=== PATIENT | male | born 1950 | race Asian ===

== ENCOUNTER 2016-10-20 18:28 | Inpatient (IN) | payer MEDICAID ==
[~2016-10-20] VITALS: Ht 172.7 cm; Wt 71.3 kg
--- NOTE | 2016-10-20 18:30 | NUR ---
BIB RA FOR CHOCKING ON UNKNOWN OBJECT, PATIENT DOES NOT HAVE ANY RESPIRATORY DISTRESS UPON ARRIVAL, PATIENT IS CONFUSED, ABLE TO AMBULATE WITH ASSISTANCE, PLACED ON MONITOR, MD AT BEDSIDE, WILL CONTINUE TO MONITOR.
--- NOTE | 2016-10-20 19:05 | NUR ---
RECEIVED REPORT FROM KAPIL APARICIO FOR CONTINUE OF CARE.
--- NOTE | 2016-10-20 19:10 | NUR ---
PT NOTED 02 SAT 90% AFTER REMOVING N/C RISK AND BENEFITS EXPLAINED TO PT.
[2016-10-20] MEDS ORDERED: LORA0.5T PO (19:23)
[2016-10-20] MEDS ORDERED: ONDA4TAB11 SL (19:23)
[2016-10-20] MEDS ORDERED: TRAZ-144 PO (19:23)
[2016-10-20] MEDS ORDERED: ACET-868 PO (19:23)
[2016-10-20] MEDS ORDERED: ACET650S11 RC (19:23)
[2016-10-20] MEDS ORDERED: MORP100S3 SL (19:23)
[2016-10-20] MEDS ORDERED: ESCI10TA PO (19:23)
[2016-10-20] MEDS ORDERED: BISA10SU8 RC (19:23)
[2016-10-20] MEDS ORDERED: DOCU-270 PO (19:23)
[2016-10-20] MEDS ORDERED: PROC25SU29 RC (19:23)
[2016-10-20] MEDS ORDERED: DIPH25CA6 PO (19:23)
[2016-10-20] MEDS ORDERED: ATRO2DRO4 SL (19:23)
[2016-10-20 19:30] LABS: BASOPHILS % (AUTO) 0.4 % (0.0-2.0); EOSINOPHILS # (AUTO) 0.2 /CMM (0.0-0.7); EOSINOPHILS % (AUTO) 5.9 % (0.0-6.0); HEMATOCRIT 44 % (39-51); LYMPHOCYTES # (AUTO) 0.8 /CMM (0.8-4.8); LYMPHOCYTES % (AUTO) 21.2 % (20.0-44.0); MEAN CORPUSCULAR HEMOGLOBIN 31 PG (26.0-33.0); MEAN CORPUSCULAR HGB CONC 34 g/dl (31.0-36.0); MEAN CORPUSCULAR VOLUME 91 fL (80-96); MONOCYTES # (AUTO) 0.2 /CMM (0.1-1.30); MONOCYTES % (AUTO) 4.8 % (2.0-12.0); NEUTROPHILS # (AUTO) 2.6 /CMM (1.8-8.9); NEUTROPHILS % (AUTO) 67.7 % (43.0-81.0); PLATELET COUNT (AUTO) 162 /CMM (150-450); RED BLOOD CELL COUNT(AUTO) 4.89 MIL/uL (4.5-6.0); WHITE BLOOD COUNT (AUTO) 3.8 K/uL (4.3-11.0)
--- NOTE | 2016-10-20 19:40 | NUR ---
CALLED NURSING SUP. FOR TELE BED
[2016-10-20 19:42] LABS: CALCIUM, SERUM 8.8 mg/dL (8.5-10.1); CARBON DIOXIDE 29 mmol/L (21-32); CHLORIDE 104 mmol/L (98-107); CREATININE 1.1 mg/dL (0.6-1.3); GFR 67 mL/min (>60); GLUCOSE 156 mg/dL (74-106); POTASSIUM 3.7 mmol/L (3.5-5.1); SODIUM SERUM 142 mmol/L (136-145); UREA NITROGEN, BLOOD 14 mg/dL (7-18)
[2016-10-20 19:48] LABS: ALANINE AMINOTRANSFERASE 23 U/L (12-78); ALBUMIN 3.6 g/dL (3.4-5.0); ALKALINE PHOSPHATASE 54 U/L (46-116); ASPARTATE AMINOTRANSFERASE 27 U/L (15-37); BILIRUBIN,DIRECT 0.1 mg/dL (0.0-0.2); BILIRUBIN,TOTAL 0.5 mg/dL (0.2-1.0); TOTAL PROTEIN, SERUM 7.2 g/dL (6.4-8.2)
[2016-10-20 19:49] LABS: TROPONIN I < 0.017 ng/mL (0.00-0.056)
--- NOTE | 2016-10-20 19:50 | NUR ---
PT ASSIGNED TO [facility] [phone]
[2016-10-20 19:51] LABS: INR 0.97 (0.87-1.13); PROTHROMBIN TIME 10.4 SECS (9.5-12.7)
--- NOTE | 2016-10-20 20:25 | NUR ---
[facility] PAGED, DR.VU KOROMA TREE FALLER
--- NOTE | 2016-10-20 20:26 | NUR ---
REPORT GIVEN TO LISBETH DENT FOR ABA.
--- NOTE | 2016-10-20 20:43 | NUR ---
DR. AGNIESZKA KOROMA AT BEDSIDE FOR EVAL.
--- NOTE | 2016-10-20 20:53 | NUR ---
PT TRASNFERED PER ACLS PROTOCOL.
[2016-10-20 21:00] VITALS: BP 109/74
[2016-10-20] MEDS ORDERED: ATROPINE SULFATE OPHTH SOLN 15 ML BOTTLE SL PRN (21:00)
[2016-10-20] MEDS ORDERED: ONDANSETRON 4 MG TAB.RAPDIS SL PRN (21:00)
[2016-10-20] MEDS ORDERED: HYDROCODONE/APAP 5/325MG 1 EACH TABLET PO PRN (21:00)
[2016-10-20] MEDS ORDERED: MAG HYDROX/AL HYDROX/SIMETH 30 ML UDC PO PRN (21:00)
[2016-10-20] MEDS ORDERED: MAGNESIUM HYDROXIDE 30 ML UDC PO PRN (21:00)
[2016-10-20] MEDS ORDERED: ZOLPIDEM TARTRATE 5 MG TABLET PO PRN (21:00)
[2016-10-20] MEDS ORDERED: MORPHINE SULFATE INJ 2 MG/ML DISP.SYRIN IV PRN (21:00)
[2016-10-20] MEDS ORDERED: PROCHLORPERAZINE MALEATE SUPP 25 MG/SUPP.RECT SUPP.RECT RC PRN (21:00)
[2016-10-20] MEDS ORDERED: ONDANSETRON HCL/PF 4 MG/2 ML VIAL IVP PRN (21:00)
[2016-10-20] MEDS ORDERED: ACETAMINOPHEN 325 MG TABLET PO PRN (21:00)
[2016-10-20] MEDS ORDERED: LORAZEPAM 0.5 MG TABLET PO PRN (21:00)
[2016-10-20] MEDS ORDERED: BISACODYL SUPP (10 MG) 10 MG/SUPP.RECT SUPP.RECT RC PRN (21:00)
[2016-10-20] MEDS ORDERED: Z GUARD REMEDY 2 OZ OINT TP PRN (21:00)
--- NOTE | 2016-10-20 21:00 | NUR ---
TELE HOLE PUNCHER STRAP INITIAL NOTES ADMIT PT FROM ER VIA [facility] ACCOMPANIED BY ER NURSE AND TECH. DX CHOKING AND CYANOSIS. PT IS AWAKE AND CONFUSION NOTED. HE SEEMS SPEAK GREENLANDIC. NO SIGNS OF ANY ACUTE DISTRESS NOTED .SKIN WARM AND DRY TO TOUCH, NO SINGS OF CYANOSIS OR SOB NOTED. TELE SR PER MONITOR.ORIENTED WHERE HE AT.KEPT HIM WARM AND COMFORTABLE AT ALL TIMES. WILL CONTINUE CLOSELY MONITORING.
[2016-10-20] MEDS ORDERED: TRAZODONE 50 MG TABLET PO SCH (22:00)
[2016-10-20] MEDS ORDERED: TRAZODONE 50 MG TABLET ONE (22:20)
[2016-10-21] VITALS: BP 110/80
[2016-10-21] MEDS ORDERED: ZOLPIDEM TARTRATE 5 MG TABLET ONE (00:55)
--- NOTE | 2016-10-21 00:58 | NUR ---
TELE ROAD GRADER OPERATOR NOTES AMBIEN 5 MG GIVEN PO WITH APPLE SAUCE , PT TOLERATED WELL , NO ASPIRATION NOTED. SAFETY PRECAUTION IMPLEMENTED AND OBSERVED WILL CONTINUE TO MONITOR.
[2016-10-21 04:00] VITALS: BP 100/72
[2016-10-21 07:00] LABS: BASOPHILS % (AUTO) 0.3 % (0.0-2.0); EOSINOPHILS # (AUTO) 0.2 /CMM (0.0-0.7); EOSINOPHILS % (AUTO) 3.3 % (0.0-6.0); HEMATOCRIT 40 % (39-51); HEMOGLOBIN 13.5 g/dL (13.5-17.5); LYMPHOCYTES # (AUTO) 1.2 /CMM (0.8-4.8); LYMPHOCYTES % (AUTO) 16.7 % (20.0-44.0); MEAN CORPUSCULAR HEMOGLOBIN 31 PG (26.0-33.0); MEAN CORPUSCULAR HGB CONC 34 g/dl (31.0-36.0); MEAN CORPUSCULAR VOLUME 91 fL (80-96); MONOCYTES # (AUTO) 0.5 /CMM (0.1-1.30); NEUTROPHILS % (AUTO) 72.7 % (43.0-81.0); PLATELET COUNT (AUTO) 158 /CMM (150-450); RDW COEFFICIENT OF VARIATION 13.3 (11.5-15.0); RED BLOOD CELL COUNT(AUTO) 4.36 MIL/uL (4.5-6.0); WHITE BLOOD COUNT (AUTO) 6.9 K/uL (4.3-11.0)
[2016-10-21] MEDS ORDERED: PANTOPRAZOLE 40 MG TABLET.DR PO SCH (07:30)
--- NOTE | 2016-10-21 07:42 | NUR ---
TELE LUMBER BEARER CLOSING NOTES PT REMAINS SLEEPING BUT AROUSES TO TOUCH, STABLE VIPIN THE NIGHT, ABLE TO SWALLOW AND DRINK WITHOUT ANY ASPIRATION NOTED. CONFUSION NOTED . SAFETY PRECAUTION IMPLEMENTED AND OBSERVED. TELE SR PER MONITOR. ENDORSE TO NURSE ANSHU FOR CONTINUITY OF CARE.
--- NOTE | 2016-10-21 07:50 | NUR ---
MS RN RECEIVED ON BED, AWAKE,ALERT,ORIENTED X2,YAKUT SPEAKING ,NOT IN ANY FORM OF DISTRESS, RESPIRATIONS EVEN AND UNLABORED,NO SOB NOTED, WILL MONITOR PATIENT.
[2016-10-21 07:56] LABS: ALBUMIN 3.3 g/dL (3.4-5.0); BILIRUBIN,TOTAL 0.7 mg/dL (0.2-1.0); CALCIUM, SERUM 8.1 mg/dL (8.5-10.1); CREATININE 0.9 mg/dL (0.6-1.3); MAGNESIUM 1.7 mg/dL (1.8-2.4); PHOSPHORUS 3.3 mg/dL (2.5-4.9); POTASSIUM 3.6 mmol/L (3.5-5.1); TOTAL PROTEIN, SERUM 6.7 g/dL (6.4-8.2)
[2016-10-21 08:00] VITALS: BP 98/62
--- NOTE | 2016-10-21 08:30 | NUR ---
ms rn patient still sleeping, refused breakfast and meds, will offer again later.
[2016-10-21] MEDS ORDERED: DOCUSATE SODIUM 100 MG CAPSULE PO SCH (09:00)
[2016-10-21] MEDS ORDERED: ESCITALOPRAM OXALATE (10 MG) 10 MG TABLET PO SCH (09:00)
--- NOTE | 2016-10-21 10:30 | NUR ---
ms rn patient awake, roaming around the station, confuse, ate breakfast at this time.
--- NOTE | 2016-10-21 11:30 | NUR ---
ms rn visitor at bedside, took all his due meds,denies pain at this time.
[2016-10-21] MEDS ORDERED: MAGNESIUM OXIDE 400 MG TABLET PO ONE (12:00)
--- NOTE | 2016-10-21 15:14 | NUR ---
ms rn patient went back to board and care, left message to halina cates, does not answering his phone , placed call twice.
== END 2016-10-21 15:10 | disposition home or self-care (01) | DRG 143 ==
LOC: ER 18:30 → TELE 20:36 → MED 10-21 08:03
PROVIDERS: ADMIT Family Medicine; ATTEND Family Medicine
DX: T17.890A Other foreign object in other parts of respiratory tract causing asphyxiation, initial encounter (principal); G30.9 Alzheimer's disease, unspecified; F02.80 Dementia in other diseases classified elsewhere, unspecified severity, without behavioral disturbance, psychotic disturbance, mood disturbance, and anxiety; X58.XXXA Exposure to other specified factors, initial encounter; Y93.9 Activity, unspecified; Y92.129 Unspecified place in nursing home as the place of occurrence of the external cause; F32.9 Major depressive disorder, single episode, unspecified; Y99.9 Unspecified external cause status; F20.9 Schizophrenia, unspecified
CPT/HCPCS: 36415; 71010-TC; 80048-TC; 80053-TC; 80076-TC; 83735-TC; 84100-TC; 84484-TC; 85025-TC; 85730-TC; 87081-TC; 92611-TC; A4606; Z7610

== ENCOUNTER 2016-12-23 15:39 | Inpatient (IN) | payer MEDICAID ==
[~2016-12-23] VITALS: Ht 172.7 cm; Wt 72.6 kg
[~2016-12-23 15:39] MED LIST: ACET-868 PO; ACET650S11 RC; ATRO2DRO4 SL; BISA10SU8 RC; DIPH25CA6 PO; DOCU-270 PO; ESCI10TA PO; LORA0.5T PO; MORP100S3 SL; ONDA4TAB11 SL; PROC25SU29 RC; TRAZ-144 PO
[2016-12-23 16:01] LABS: BASOPHILS % (AUTO) 0.2 % (0.0-2.0); EOSINOPHILS # (AUTO) 0.2 /CMM (0.0-0.7); EOSINOPHILS % (AUTO) 4.4 % (0.0-6.0); HEMATOCRIT 42 % (39-51); HEMOGLOBIN 14.1 g/dL (13.5-17.5); LYMPHOCYTES # (AUTO) 1.2 /CMM (0.8-4.8); LYMPHOCYTES % (AUTO) 26.5 % (20.0-44.0); MEAN CORPUSCULAR HEMOGLOBIN 31 PG (26.0-33.0); MEAN CORPUSCULAR HGB CONC 34 g/dl (31.0-36.0); MEAN CORPUSCULAR VOLUME 92 fL (80-96); MONOCYTES # (AUTO) 0.3 /CMM (0.1-1.30); MONOCYTES % (AUTO) 7.4 % (2.0-12.0); NEUTROPHILS # (AUTO) 2.8 /CMM (1.8-8.9); NEUTROPHILS % (AUTO) 61.5 % (43.0-81.0); PLATELET COUNT (AUTO) 125 /CMM (150-450); RDW COEFFICIENT OF VARIATION 13.7 (11.5-15.0); RED BLOOD CELL COUNT(AUTO) 4.52 MIL/uL (4.5-6.0); WHITE BLOOD COUNT (AUTO) 4.5 K/uL (4.3-11.0)
--- NOTE | 2016-12-23 16:03 | NUR ---
PT A/OX1 BREATHING EFFORTLESSLY ON ROOM AIR, PT WAS SENT HERE BY AMBULANCE FOR A PSYCH EVAL. PER EMS, PT WAS EATING HIS OWN FECES AND EATING THE WHIPES AROUND THE ROOM AT THE FACILITY, URINE COLLECTED, LAB IN ROOM TO DRAW, PT ON MONITOR, IN GOWN MADE AWARE WILL CONTINUE TO MONITOR.
[2016-12-23 16:10] LABS: APPEARANCE,URINE Clear (CLEAR); BILIRUBIN,URINE Negative (NEGATIVE); BLOOD, URINE Negative Ery/uL (NEGATIVE); COLOR,URINE Yellow (YELLOW); KETONES,URINE Negative (NEGATIVE); LEUKOCYTE ESTERASE ,URINE Negative (NEGATIVE); NITRITE, URINE Negative (NEGATIVE); PROTEIN,URINE Negative (NEGATIVE); UGLUCOSE Negative (NEGATIVE); UROBILINOGEN,URINE 0.2 EU/dL (0.2)
[2016-12-23 16:10] LABS: CALCIUM, SERUM 8.9 mg/dL (8.5-10.1); CARBON DIOXIDE 31 mmol/L (21-32); CHLORIDE 108 mmol/L (98-107); CREATININE 0.9 mg/dL (0.6-1.3); GLUCOSE 109 mg/dL (74-106); POTASSIUM 3.8 mmol/L (3.5-5.1); SODIUM SERUM 143 mmol/L (136-145); UREA NITROGEN, BLOOD 19 mg/dL (7-18)
[2016-12-23 16:12] LABS: ALCOHOL, BLOOD < 3 mg/dL (0-0)
--- NOTE | 2016-12-23 16:12 | NUR ---
CALLED [facility] [phone] TO GET MORE INFO ABOUT PT, LEFT MESSAGE ON VOICEMAIL.
[2016-12-23] MEDS ORDERED: ESCI20TA PO (16:15)
[2016-12-23] MEDS ORDERED: ATRO2DRO4 SL (16:15)
[2016-12-23] MEDS ORDERED: BISA10SU8 RC (16:15)
[2016-12-23] MEDS ORDERED: LORA2TAB PO (16:15)
[2016-12-23] MEDS ORDERED: OLAN10TA3 PO (16:15)
[2016-12-23] MEDS ORDERED: RISP0.253 PO (16:15)
[2016-12-23] MEDS ORDERED: DIPH25CA6 PO (16:15)
[2016-12-23] MEDS ORDERED: LORA1TAB PO (16:15)
[2016-12-23] MEDS ORDERED: MORP100S3 SL (16:15)
[2016-12-23] MEDS ORDERED: ACET650S11 RC (16:15)
[2016-12-23] MEDS ORDERED: ONDA4TAB11 SL (16:15)
[2016-12-23] MEDS ORDERED: LORAZEPAM INJ 2 MG/ML VIAL ONE (16:18)
--- NOTE | 2016-12-23 16:23 | NUR ---
CALLED JULIANN COREY, TO COME SEE PTJUMA WITHIN THE HOUR
[2016-12-23] MEDS ORDERED: LORAZEPAM INJ 2 MG/ML VIAL IM ONE (16:30)
--- NOTE | 2016-12-23 17:15 | NUR ---
[facility] PAGED, DR.SIMONA Hernandes FOOD AND BEVERAGE OPERATIONS MANAGER
--- NOTE | 2016-12-23 17:16 | NUR ---
CALLED NURSING SUP. FOR MS BED
[2016-12-23] MEDS ORDERED: BISACODYL SUPP (10 MG) 10 MG/SUPP.RECT SUPP.RECT RC PRN (18:30)
[2016-12-23] MEDS ORDERED: diphenhydrAMINE HCL 25 MG CAPSULE PO PRN (18:30)
[2016-12-23] MEDS ORDERED: MORPHINE SULFATE SOLN CONCENTRATED 20 MG/ML SL PRN (18:30)
[2016-12-23] MEDS ORDERED: ONDANSETRON 4 MG TAB.RAPDIS SL PRN (18:30)
[2016-12-23] MEDS ORDERED: LORAZEPAM 0.5 MG TABLET PO PRN (18:30)
[2016-12-23] MEDS ORDERED: ACETAMINOPHEN 650 MG/SUPP.RECT RC PRN (18:30)
[2016-12-23] MEDS ORDERED: ATROPINE SULFATE OPHTH SOLN 15 ML BOTTLE SL PRN ×2 (18:30)
--- NOTE | 2016-12-23 18:35 | NUR ---
RN NOTES RECEIVED PATIENT FROM ER ASSISTED TO BED, ALERT AND ORIENTED X1,CONFUSED, EASILY AGITATED, APPROACHED IN CALM NONTHREATENING MANNER.RESPIRATIONS EVEN AND UNLABORED,IN NO APPARENT PAIN OR DISCOMFORT AT THIS TIME. WILL ENDORSE TO NEXT SHIFT FOR CONTINUITY OF CARE AND ADMITTING ORDERS
[2016-12-23] MEDS ORDERED: ONDANSETRON HCL/PF 4 MG/2 ML VIAL IVP PRN (19:00)
[2016-12-23] MEDS ORDERED: Z GUARD REMEDY 2 OZ OINT TP PRN (19:00)
[2016-12-23] MEDS ORDERED: ZOLPIDEM TARTRATE 5 MG TABLET PO PRN (19:00)
[2016-12-23] MEDS ORDERED: ACETAMINOPHEN 325 MG TABLET PO PRN (19:00)
[2016-12-23] MEDS ORDERED: HYDROCODONE/APAP 5/325MG 1 EACH TABLET PO PRN (19:00)
[2016-12-23] MEDS ORDERED: MAG HYDROX/AL HYDROX/SIMETH 30 ML UDC PO PRN (19:00)
[2016-12-23] MEDS ORDERED: MORPHINE SULFATE INJ 2 MG/ML DISP.SYRIN IV PRN (19:00)
[2016-12-23] MEDS ORDERED: MAGNESIUM HYDROXIDE 30 ML UDC PO PRN (19:00)
--- NOTE | 2016-12-23 19:30 | NUR ---
MS SPRUE CUTTING PRESS OPERATOR NOTES RECEIVED ON BED,NEW ADMIT CAME IN AT 1830 PER REPORT,ALERT,ORIENTED X1,CONFUSED,SPEAK ROMANSH,CAME FROM BOARD AND CARE.CALM AND QUIET AT THE MOMENT,FOLLOW INSTRUCTION.SITTER AT BEDSIDE WITH ORDER FOR SAFETY.SALINE LOCK RIGHT FOREARM INTACT AND PATENT.NO SKIN ISSUES.CALL LIGHT IN REACH,WILL CONTINUE TO MONITOR BEHAVIOR.
[2016-12-23] MEDS ORDERED: IV SET PRIMARY PUMP SET 1 EA INFUS.SET MC ONE (20:36)
[2016-12-23] MEDS: IV D5/0.45 NACL 1,000 ML IV PRN (20:42)
--- NOTE | 2016-12-23 20:42 | NUR ---
MS RN NOTES STARTED ON D5 1/2 NS AT 75ML/HR RATE ORDERED,INFUSING VIA IV PUMP.
[2016-12-23] MEDS: TRAZODONE 50 MG TABLET PO SCH (22:00)
--- NOTE | 2016-12-23 22:00 | NUR ---
MS RN NOTES DUE DESYREL 50MG PO HELD,PATIENT SOUND ASLEEP.
[2016-12-24 05:35] VITALS: BP 108/66
--- NOTE | 2016-12-24 06:00 | NUR ---
MS RN NOTES AWAKE,MUMBLES ON FRENCH LANGUAGE
--- NOTE | 2016-12-24 06:22 | NUR ---
MS RN NOTES KEPT NPO TILL SEEN FOR SWALLOW EVAL.NO FALL,NO INJURY.IV SITE REMAINS PATENT.IN NOACUTE DISTRESS.WILL ENDORSE TO DAY NURSE FOR ABA.
[2016-12-24 06:30] LABS: BASOPHILS % (AUTO) 0.4 % (0.0-2.0); EOSINOPHILS # (AUTO) 0.2 /CMM (0.0-0.7); EOSINOPHILS % (AUTO) 4.6 % (0.0-6.0); HEMATOCRIT 39 % (39-51); HEMOGLOBIN 13.3 g/dL (13.5-17.5); LYMPHOCYTES # (AUTO) 1.2 /CMM (0.8-4.8); LYMPHOCYTES % (AUTO) 32.4 % (20.0-44.0); MEAN CORPUSCULAR HEMOGLOBIN 32 PG (26.0-33.0); MEAN CORPUSCULAR HGB CONC 34 g/dl (31.0-36.0); MEAN CORPUSCULAR VOLUME 92 fL (80-96); MONOCYTES # (AUTO) 0.3 /CMM (0.1-1.30); MONOCYTES % (AUTO) 7.8 % (2.0-12.0); NEUTROPHILS % (AUTO) 54.8 % (43.0-81.0); PLATELET COUNT (AUTO) 158 /CMM (150-450); RDW COEFFICIENT OF VARIATION 14.4 (11.5-15.0); RED BLOOD CELL COUNT(AUTO) 4.23 MIL/uL (4.5-6.0); WHITE BLOOD COUNT (AUTO) 3.7 K/uL (4.3-11.0)
[2016-12-24 06:48] LABS: ALBUMIN 3.2 g/dL (3.4-5.0); BILIRUBIN,TOTAL 0.6 mg/dL (0.2-1.0); CALCIUM, SERUM 8.1 mg/dL (8.5-10.1); CREATININE 0.7 mg/dL (0.6-1.3); MAGNESIUM 1.7 mg/dL (1.8-2.4); PHOSPHORUS 3.7 mg/dL (2.5-4.9); POTASSIUM 3.7 mmol/L (3.5-5.1); TOTAL PROTEIN, SERUM 6.5 g/dL (6.4-8.2)
--- NOTE | 2016-12-24 07:23 | NUR ---
MS KAPIL OPENING NOTE PATIENT IS ALERT AND ORIENTED x1. PERIODS OF CONFUSION. ASLEEP IN BED LOCKED IN LOWEST POSITION WITH SIDERAILS UP x2. NO FACIAL GRIMACING OR MOANING AT THIS TIME FOR PAIN. NO SOB OR DISTRESS NOTED. CALL LIGHT WITHIN REACH. SAFETY MEASURES IMPLEMENTED. CHINESE SPEAKING. IV INTACT AND PATENT NO REDNESS OR SWELLING NOTED. WILL CONTINUE TO MONITOR Addendum: 12/24/16 at 0732 by HUGH ANDREW RN PATIENT IS CURRENTLY NPO, AWAITING SWALLOW EVALUATION. WILL INFORM MD OF RESULTS FOR SWALLOW EVAL
[2016-12-24] MEDS: PANTOPRAZOLE 40 MG TABLET.DR PO SCH (07:30)
--- NOTE | 2016-12-24 07:33 | NUR ---
MS RN NOTE PATIENT IS CURRENTLY NPO, NOT ABLE TO GIVE PROTONIX AT THIS TIME.
--- NOTE | 2016-12-24 08:33 | NUR ---
MS RN NOTE PER DR. SWEENEY PATIENT TO HAVE PSYCH CONSULT WITH ON-CALL MD. CALLED DR. FRENCH TO INFORM HER ABOUT PATIENT. WILL FOLLOW UP
[2016-12-24] MEDS: ESCITALOPRAM OXALATE (10 MG) 10 MG TABLET PO SCH (08:39)
[2016-12-24] MEDS: risperiDONE 0.25 MG TABLET PO SCH ×2 (08:39→16:07)
[2016-12-24] MEDS: DOCUSATE SODIUM 100 MG CAPSULE PO SCH ×2 (08:39→16:07)
[2016-12-24] MEDS ORDERED: OLANZAPINE 10 MG TABLET PO SCH (09:00)
[2016-12-24] MEDS ORDERED: Medication Not On Formulary EA (Escitalopram Oxalate (Lexapro) 20 MG) PO SCH (09:00)
[2016-12-24] MEDS ORDERED: SECONDARY IV SET 1 EA INFUS.SET MC ONE (10:48)
[2016-12-24] MEDS: Magnesium 1GM/D5W 100ML PREMIX 100 ML IV SCH ×2 (10:54→12:08)
[2016-12-24] MEDS ORDERED: OLANZAPINE 2.5 MG TABLET PO SCH (12:00)
--- NOTE | 2016-12-24 13:21 | NUR ---
MS RN NOTE PATIENT KEEPS SCRATCHING AND PULLING AT IV SITE. IV REMOVED FROM RIGHT FOREARM. NEW IV STARTED ON LEFT FOREARM AND COVERED WITH SLEEVE. PATIENT STILL SCRATCHING AT SITE. WILL CONTINUE TO MONITOR.
[2016-12-24 16:00] VITALS: BP 111/72
[2016-12-24] MEDS: OLANZAPINE 5 MG TABLET PO SCH (16:07)
--- NOTE | 2016-12-24 16:37 | NUR ---
MS RN NOTE PATIENT REFUSED TO HAVE ECHOCARDIOGRAM DONE. TRIED TO EXPLAIN TO PATIENT, BUT PATIENT BECAME COMBATIVE WITH STAFF. MD INFORMED. WILL CONTINUE TO MONITOR
--- NOTE | 2016-12-24 18:24 | NUR ---
MS RN CLOSING NOTE PATIENT IS ALERT AND ORIENTED x1. PERIODS OF CONFUSION. NO PAIN AT THIS TIME. NO SOB OR DISTRESS NOTED. ALL DUE MEDICATION GIVEN ORDERED. SAFETY MEASURES IMPLEMENTED. CALL LIGHT WITHIN REACH AT ALL TIMES. IV INTACT AND PATENT NO REDNESS OR SWELLING NOTED. PATIENT REFUSED TO HAVE ECHOCARDIOGRAM DONE, NOTIFIED MD. PATIENT ALSO HAD PSYCH EVAL DONE WITH DR. FRENCH. CONTINUE HOSPITALIZATION, PHYSICAL THERAPY AND HOME MEDICATIONS. SITTER AT BEDSIDE. WILL ENDORSE TO CREDIT PROCESSOR NURSE
--- NOTE | 2016-12-24 19:23 | NUR ---
MS RN OPENING NOTES: PATIENT IN BED, AOX1, SPEAKS NEPALI, APPEARS CONFUSED BUT CALM OF THIS TIME, NO ROOM AIR, BREATHING EVEN AND UNLABORED. BREATH SOUNDS CLEAR TO AUSCULTATION. PIV OVER LFA G20 INTACT AND PATENT, INFUSING WELL WITH D5 1/2 NS RUNNING AT 75 ML/HR. PROVIDED FOR COMFORT AND SAFETY. BED IN LOWEST AND LOCKED POSITION, SIDERAILS UP X3. SITTER AT BEDSIDE. WILL CONT TO MONITOR.
[2016-12-24 20:00] VITALS: BP 106/73
[2016-12-24] MEDS: TRAZODONE 50 MG TABLET PO SCH (21:08)
--- NOTE | 2016-12-24 21:49 | NUR ---
RN NOTES: PATIENT NOTED TO BE TUGGING AT THE IV TUBING. DISCONNECTED IV TUBING FOR NOW. PATIENT NOTED TO BE MORE RELAXED. WILL RECONNECT TO IV SOON ABLE.
[2016-12-25] MEDS: IV D5/0.45 NACL 1,000 ML IV PRN ×2 (02:04→17:08)
--- NOTE | 2016-12-25 02:59 | NUR ---
RN NOTES: PATIENT PULLED OUT IV CATHETER FROM LFA. REINSERTED NEW LINE OVER RFA G22 AND PROTECTED WITH SLEEVE. WITHHELD FROM IV FLUID FOR NOW PATIENT TENDS TO PULL OUT IV LINE, WILL RECONNECT TO IV FLUID ONCE PATIENT IS MORE CALM. SITTER AT BEDSIDE.
--- NOTE | 2016-12-25 03:10 | NUR ---
RN NOTES: PATIENT NOTED TO BE SCRATCHING ARMS. ADMINISTERED BENADRYL 25 MG 1 CAP PO. WILL CONT TO MONITOR.
--- NOTE | 2016-12-25 07:30 | NUR ---
MS RN CLOSING NOTES: PATIENT IN BED, AOX1, APPEARS RESTLESS, YELLING AT TIMES. ON ROOM AIR, BREATHING EVEN AND UNLABORED. PIV OVER RFA G22 INTACT AND PATENT TO FLUSH, PROTECTED WITH SLEEVE. NO ACUTE CHANGE IN CONDITION NOTED THROUGH SHIFT. PROVIDED FOR COMFORT AND SAFETY. BED IN LOWEST AND LOCKED POSITION, SIDERAILS UP X3, SITTER AT BEDSIDE. WILL ENDORSE TO AM RN FOR ABA.
--- NOTE | 2016-12-25 07:58 | NUR ---
AM RN NOTES RECEIVED PT IN STABLE CONDITION, AWAKE, RESTLESS, SITTER AT BEDSIDE, PT REDIRECTED AND REORIENTED TO ROOM AND SITUATION, NO SOB OR DISTRESS NOTED, NO PAIN OR DISCOMFORT, WILL MONITOR.
[2016-12-25 08:00] VITALS: BP 110/70
[2016-12-25] MEDS: risperiDONE 0.25 MG TABLET PO SCH ×2 (08:35→16:25)
[2016-12-25] MEDS: ESCITALOPRAM OXALATE (10 MG) 10 MG TABLET PO SCH (08:35)
[2016-12-25] MEDS: PANTOPRAZOLE 40 MG TABLET.DR PO SCH (08:35)
[2016-12-25] MEDS: OLANZAPINE 5 MG TABLET PO SCH ×3 (08:35→16:25)
[2016-12-25] MEDS: DOCUSATE SODIUM 100 MG CAPSULE PO SCH ×2 (08:35→16:25)
[2016-12-25] MEDS: LORAZEPAM 1 MG TABLET PO PRN (13:47)
[2016-12-25 16:00] VITALS: BP 115/72
--- NOTE | 2016-12-25 18:08 | NUR ---
PT IN STABLE CONDITION, WITH RESTLESSNESS, SITTER AT BEDSIDE, PT WITH GOOD PO INTAKE, AMBULATES WITH SUPERVISION IN RESTROOM, PT JUST PULLED HIS IV LINE IN RESTROOM, NO BLEEDING NOTED, WILL TRY TO INSERT NEW LINE AFTER CT FINISHES HIS DINNER, WILL INDORSE PT TO NEXT SHIFT FOR ABA.
--- NOTE | 2016-12-25 19:30 | NUR ---
MS RN OPENING NOTES: PATIENT IN BED, AOX1, APPEARS CALM AND SLEEP INTERMITTENTLY, WITH SITTER AT BEDSIDE. BREATHING EVEN AND UNLABORED. PIV OVER R HAND G 22 INTACT AND PATENT TO FLUSH. PROVIDED FOR COMFORT AND SAFETY. BED IN LOWEST AND LOCKED POSITION, SIDERAILS UP X3. WILL CONT TO MONITOR.
[2016-12-25 20:00] VITALS: BP 106/72
[2016-12-25 22:00] VITALS: BP 106/72
[2016-12-25] MEDS: TRAZODONE 50 MG TABLET PO SCH (22:00)
--- NOTE | 2016-12-25 22:39 | NUR ---
RN NOTES: PT IS ASLEEP, AWAKENED BY TOUCH, BUT GOES BACK TO SLEEP IMMEDIATELY. TRAZODONE PO NOT GIVEN AT THIS TIME. WILL CONT TO MONITOR.
[2016-12-26] MEDS: OLANZAPINE 5 MG/TAB.RAPDIS PO PRN ×2 (05:24→10:11)
--- NOTE | 2016-12-26 05:27 | NUR ---
RN NOTES: PATIENT NOTED TO BE VERY RESTLESS, STANDING UP FROM BED AND SLAPPING SITTER'S HANDS. ADMINISTERED ZYDIX 2.5 MG PO PRN FOR AGITATION. WILL CONT TO MONITOR.
--- NOTE | 2016-12-26 06:20 | NUR ---
MS RN CLOSING NOTES: PATIENT IN BED, AOX1, STILL APPEARING RESTLESS, BUT EASILY REDIRECTABLE. ON ROOM AIR, BREATHING EVEN AND UNLABORED. PIV OVER R HAND G22 INTACT AND PATENT TO FLUSH, COVERED WITH SLEEVE TO PREVENT PATIENT FROM PULLING. NO ACUTE CHANGE IN CONDITION NOTED THROUGH SHIFT. BED IN LOWEST AND LOCKED POSITION, SIDERAILS UP X3, SITTER AT BEDSIDE. WILL ENDORSE TO AM RN FOR ABA.
[2016-12-26] MEDS: risperiDONE 0.25 MG TABLET PO SCH ×2 (07:59→17:43)
[2016-12-26] MEDS: DOCUSATE SODIUM 100 MG CAPSULE PO SCH ×2 (07:59→17:43)
[2016-12-26] MEDS: PANTOPRAZOLE 40 MG TABLET.DR PO SCH (07:59)
[2016-12-26] MEDS: ESCITALOPRAM OXALATE (10 MG) 10 MG TABLET PO SCH (07:59)
[2016-12-26 08:00] VITALS: BP 146/71
[2016-12-26] MEDS: OLANZAPINE 5 MG TABLET PO SCH ×2 (08:00→12:39)
--- NOTE | 2016-12-26 08:39 | NUR ---
MS/RN Heplock removed Patient removed heplock, refusing for new insertion at this time. Will reattempt later this morning.
--- NOTE | 2016-12-26 08:52 | NUR ---
WOUND CARE CONSULT: PT REFUSED SKIN ASSESSMENT. PT NOTED TO BE EXTREMELY RESTLESS. WILL SEE PT PT CONDITION PERMITS. PT AMBULATORY WITH TOMAS SCORE OF 19.
[2016-12-26] MEDS: LORAZEPAM 1 MG TABLET PO PRN (10:11)
--- NOTE | 2016-12-26 10:14 | NUR ---
MS/RN Agitation Patient starting to become increasingly agitated, wondering around floor, walking into other patient room, taking their belongings/food. Zyprexa 2.5mg and ativan 2mg administered orally. Will monitor effectiveness.
--- NOTE | 2016-12-26 12:36 | NUR ---
MS/RN S/B Dr Davies Seen by Dr Davies - patient cleared for discharge to [facility] if accepted by psychiatrist.
--- NOTE | 2016-12-26 15:00 | NUR ---
MS/RN Dr Dahiana Talbot called for orders due to patient's increased confusion and agitation. Order given for symfmb2if and zyprexa 5mg IM.
[2016-12-26] MEDS ORDERED: LORAZEPAM INJ 2 MG/ML VIAL IV ONE ×2 (15:30→17:30)
[2016-12-26] MEDS ORDERED: OLANZAPINE 10 MG VIAL IM ONE (15:30)
--- NOTE | 2016-12-26 15:39 | NUR ---
MS/RN Medications Ativan and zyprexia both given IM, four nurses required to hold patient for medication to be safely administered.
--- NOTE | 2016-12-26 16:54 | NUR ---
MS/RN Behavior Patient remains confused and combative. Not able to follow simple commands or follow direction. Dr Talbot currently on GPS, made aware that medication is not working, will be in to see patient.
[2016-12-26] MEDS ORDERED: HALOPERIDOL LACTATE INJ 5 MG/ML VIAL IM ONE (17:30)
[2016-12-26] MEDS ORDERED: diphenhydrAMINE HCL 50 MG/ML VIAL IV ONE (17:30)
--- NOTE | 2016-12-26 18:46 | NUR ---
MS/RN End note Dr Talbot here to see patient, remains very confused and combative. Stat order given for patient to be administered -ativan 2mg -benadryl 50mg -haldol 10mg. Medications given, patient remians under direct supervision of sitter. Will endorse to car shifter.
--- NOTE | 2016-12-26 19:30 | NUR ---
MS RN OPENING NOTES: PT IN BED, ASLEEP AT THIS TIME. BREATHING EVEN AND UNLABORED. BREATH SOUNDS CLEAR TO AUSCULTATION. PATIENT HAS NO IV LINE, PER AM RN, PT PULLED IT OUT EARLIER WHILE HE WAS AGITATED, AND THAT MD IS AWARE. WILL ATTEMPT TO REINSERT NEW IV LINE LATER. PROVIDED FOR COMFORT AND SAFETY. BED IN LOWEST AND LOCKED POSITION, SIDERAILS UP X3, SITTER AT BEDSIDE. WILL CONT TO MONITOR.
[2016-12-26 20:00] VITALS: BP 98/65
[2016-12-26] MEDS: DIVALPROEX SODIUM 500 MG TABLET.DR PO SCH (21:00)
[2016-12-26] MEDS: TRAZODONE 50 MG TABLET PO SCH (22:00)
--- NOTE | 2016-12-26 22:44 | NUR ---
RN NOTES: PATIENT STILL SLEEPING SOUNDLY, BREATHING EVEN AND UNLABORED. UNABLE TO GIVE DEPAKOTE 500 MG TAB AND TRAZODONE 50 MG TAB AT THIS TIME. WILL CONT TO MONITOR.
--- NOTE | 2016-12-27 05:44 | NUR ---
RN NOTES: REINSERTED NEW IV LINE AT R HAND G22.
--- NOTE | 2016-12-27 06:26 | NUR ---
RN NOTES: PATIENT NOTED TO BE RESTLESS AND AGITATED, TRYING TO PULL OUT IV LINE AND TRYING TO GET OUT OF BED. CALLED DR HOLLY FOR ORDER FOR SOFT WRIST RESTRAINTS. ORDER OBTAINED. SOFT WRIST RESTRAINTS PLACED ON PATIENT FOR NOW. SITTER AT BEDSIDE. WILL REASSESS Q 2 HRS FOR NEED AND WILL RELIEVE PATIENT OF RESTRAINTS WHEN ABLE. WILL ALSO TRY TO CALL FAMILY TO EDUCATE REGARDING RESTRAINTS.
--- NOTE | 2016-12-27 06:43 | NUR ---
MS RN CLOSING NOTES: PATIENT IN BED, AOX1, STILL RESTLESS, ON ROOM AIR, BREATHING EVEN AND UNLABORED. PIV OVER R HAND G22 INTACT AND PATENT. WITH JOSÉ ANTONIO SOFT WRIST RESTRAINTS. PROVIDED FOR COMFORT AND SAFETY. BED IN LOWEST AND LOCKED POSITION, SIDERAILS UP X3, BED ALARMS ON. SITTER AT BEDSIDE. NO ACUTE CHANGE IN CONDITION NOTED THROUGH SHIFT. WILL ENDORSE TO AM RN FOR ABA.
--- NOTE | 2016-12-27 07:24 | NUR ---
RN NOTES: TRIED TO CONTACT A FAMILY MEMBER OR A RESPONSIBLE LIBERTARIAN REGARDING APPLICATION OF RESTRAINTS ON PATIENT, THE ONLY NUMBER AVAILABLE WAS THAT OF THE [facility]. PER BRUCE, THE NURSE AT THE BOARD AND CARE, THEY ALSO DO NOT HAVE ANY FAMILY/ DPOA CONTACT NUMBER ON FILE.
--- NOTE | 2016-12-27 07:52 | NUR ---
MS/RN Patient received Patient received from manager shift. Confused and agitated, remains with bilateral soft wrist restraints and also requires sitter as tends to wondering into other patients rooms, touching and taking others personal property. Will continue to observe and ensure safety.
[2016-12-27 08:00] VITALS: BP 100/70
[2016-12-27] MEDS: PANTOPRAZOLE 40 MG TABLET.DR PO SCH (08:20)
[2016-12-27] MEDS: DOCUSATE SODIUM 100 MG CAPSULE PO SCH ×2 (08:20→17:24)
[2016-12-27] MEDS: risperiDONE 0.25 MG TABLET PO SCH ×2 (08:20→17:25)
[2016-12-27] MEDS: DIVALPROEX SODIUM 500 MG TABLET.DR PO SCH ×2 (08:20→20:08)
[2016-12-27] MEDS: OLANZAPINE 5 MG TABLET PO SCH ×3 (08:20→17:24)
[2016-12-27] MEDS: LORAZEPAM 1 MG TABLET PO PRN (08:20)
[2016-12-27] MEDS: ESCITALOPRAM OXALATE (10 MG) 10 MG TABLET PO SCH (08:21)
--- NOTE | 2016-12-27 08:21 | NUR ---
MS/RN Medications Morning medications administered as ordered, with ativan 2mg prn.
--- NOTE | 2016-12-27 10:45 | NUR ---
MS/RN Behavior Patient has been calmer this morning, no behavior outbursts. Sitter remains at bedside.
--- NOTE | 2016-12-27 12:00 | NUR ---
MS/RN S/B Soha Burton, OPHTHALMIC PATHOLOGIST Seen by OPHTHALMIC PATHOLOGIST - continue with current plan of care, await case management to arrange placement.
[2016-12-27 16:00] VITALS: BP 102/65
--- NOTE | 2016-12-27 18:26 | NUR ---
MS/RN End note Patient has remained cooperative today, no real behavior outbursts. Taking all medications as ordered. Will continue to monitor and endorse to material handler 1st shift.
--- NOTE | 2016-12-27 19:30 | NUR ---
MS/RN INITIAL NOTES RECEIVED REPORT FROM SPEECH PATHOLOGY SUPERVISOR. PT IS AWAKE IN BED, A/O TO SELF. NO SIGNS OF SOB, NO COMPLAINTS OF PAIN AT THIS TIME.IV ACCESS ON RIGHT HAND #22, PATENT AND INTACT, NO IV FLUIDS RUNNING AT THIS TIME. PT AWAITING PLACEMENT FOR DISCHARGE. WILL CONTINUE TO MONITOR
--- NOTE | 2016-12-27 20:00 | NUR ---
MS/RN RESTRAINTS RECEIVED PT WITH BILATERAL SOFT WRIST RESTRAINTS WITH SITTER 1:1 AT BEDSIDE. PT HAS RESTRAINTS DUE TO DISRUPTIVE BEHAVIOR UNRESOLVED BY OTHER THERAPEUTIC APPROACHES. WILL CONTINUE TO MONITOR
[2016-12-27 20:50] VITALS: BP 121/53
[2016-12-27] MEDS: TRAZODONE 50 MG TABLET PO SCH (21:25)
[2016-12-28] MEDS: LORAZEPAM 1 MG TABLET PO PRN (04:28)
--- NOTE | 2016-12-28 04:29 | NUR ---
PRN ATIVAN: PT NOTED TO BE AGITATED TRYING TO GET OUT OF BED, PULLED OUT HIS IV, PRN ATIVAN 2MG PO ADMINISTERED TO THE PT AT THIS TIME
--- NOTE | 2016-12-28 06:55 | NUR ---
MS RN CLOSING NOTES: PATIENT IN BED, AOX1, STILL RESTLESS, ON ROOM AIR, BREATHING EVEN AND UNLABORED. PIV OVER L HAND G24 INTACT AND PATENT. WITH BILATERAL SOFT WRIST RESTRAINTS. PROVIDED FOR COMFORT AND SAFETY. BED IN LOWEST AND LOCKED POSITION, SIDERAILS UP X3, BED ALARMS ON. SITTER AT BEDSIDE. NO ACUTE CHANGE IN CONDITION NOTED THROUGH SHIFT. WILL ENDORSE TO AM RN .
--- NOTE | 2016-12-28 07:33 | NUR ---
RN MS NOTES PATIENT IN BED, CONFUSED, NO S/SX OF DISTRESS, NEEDS ATTENDED AND MET, BILATERAL SOFT WRIST RESTRAINTS IN PLACED, CHECKED FOR CIRCULATION AND SKIN BREAKDOWN, SITTER AT BEDSIDE, SAFETY MEASURES IN PLACED, CALL LIGHT WITHIN REACH, WILL CONTINUE TO MONITOR.
[2016-12-28 08:00] VITALS: BP 102/71
[2016-12-28] MEDS: DOCUSATE SODIUM 100 MG CAPSULE PO SCH ×2 (09:07→16:19)
[2016-12-28] MEDS: PANTOPRAZOLE 40 MG TABLET.DR PO SCH (09:07)
[2016-12-28] MEDS: OLANZAPINE 5 MG TABLET PO SCH ×3 (09:07→16:20)
[2016-12-28] MEDS: DIVALPROEX SODIUM 500 MG TABLET.DR PO SCH ×2 (09:07→22:17)
[2016-12-28] MEDS: risperiDONE 0.25 MG TABLET PO SCH ×2 (09:07→16:19)
[2016-12-28] MEDS: ESCITALOPRAM OXALATE (10 MG) 10 MG TABLET PO SCH (09:07)
[2016-12-28] MEDS ORDERED: BISACODYL SUPP (10 MG) 10 MG/SUPP.RECT SUPP.RECT RC PRN (12:00)
--- NOTE | 2016-12-28 13:30 | NUR ---
KAPIL MS NOTES REPORTED BY STAFF, PATIENT WAS EATING LUNCH, THEN FOUND TO BE CHOKING ON HIS FOOD, SITTER AT BEDSIDE PERFORMED A HEIMLICH MANEUVER, AND SUCCESSFUL, STAFF WAS ABLE TO ESTABLISH AIRWAY, DID NOT LOSE CONSCIOUSNESS, PATIENT IS RESPONSIVE AND ABLE TO TALK, SOME FOOD STILL LEFT IN HIS MOUTH AND HE REFUSES TO SPIT OUT, VITAL SIGNS STABLE BP 123/73 SPO2 93-95% HR 93 RESP 18 TEMP 97.9. NO SIGNS AND SYMPTOMS OF RESPIRATORY DISTRESS AT THIS TIME, INFORMED EVERT CRUZ AND RECEIVED NEW ORDER FOR X-RAY, AND SPEECH EVAL. ORDER NOTED AND CARRIED OUT. Addendum: 12/28/16 at 1518 by TOM CARDOSO RN ADDENDUM: PATIENT HAS TENDENCY TO STUFF HIS MOUTH WITH FOOD.
[2016-12-28 16:00] VITALS: BP 119/73
--- NOTE | 2016-12-28 18:48 | NUR ---
RN MS NOTES PATIENT IN BED WITH EPISODES OF AGITATION, BILATERAL SOFT RESTRAINTS BREATHING EVEN AND UNLABORED, NO SOB OR DISTRESS NOTED, PATIENT ASSISTED WITH DINNER AND TOLERATED WELL 100%, PATIENT HAD 2 BM DURING THIS SHIFT, NEEDS ATTENDED AND MET, CALL LIGHT WITHIN REACH, WILL ENDORSE TO ADVERTISING SPECIALIST FOR ABA.
--- NOTE | 2016-12-28 19:25 | NUR ---
MS RN NOTES PATIENT IN BED WITH EPISODES OF AGITATION, BILATERAL SOFT RESTRAINTS IN PLACE. PT VERBALLY RESPONSIVE, HUNGARIAN SPEAKING. BREATHING EVEN AND UNLABORED, NO SOB OR DISTRESS NOTED. GOOD SKIN CARE RENDERED. ASPIRATION PRECAUTION OBSERVED. ALL NEEDS ATTENDED AND MET, SITTER AT BED SIDE. SAFETY PRECAUTIONS OBSERVED. IV SITE ON LEFT HAND INTACT AND PATENT. NO S/S OF INFILTRATION NOTED. CALL LIGHT WITHIN REACH, WILL CONTINUE TO MONITOR.
[2016-12-28 20:00] VITALS: BP 117/74
[2016-12-28 22:00] VITALS: BP 117/74
[2016-12-28] MEDS: TRAZODONE 50 MG TABLET PO SCH (22:17)
[2016-12-29] MEDS: PANTOPRAZOLE 40 MG TABLET.DR PO SCH (07:00)
--- NOTE | 2016-12-29 07:15 | NUR ---
MS RN NOTES PATIENT IN BED WITH EPISODES OF AGITATION, BILATERAL SOFT RESTRAINTS IN PLACE. PT VERBALLY RESPONSIVE, PERSIAN SPEAKING. BREATHING EVEN AND UNLABORED, NO SOB OR DISTRESS NOTED. GOOD SKIN CARE RENDERED. ASPIRATION PRECAUTION OBSERVED. ALL NEEDS ATTENDED AND MET, SITTER AT BED SIDE. SAFETY PRECAUTIONS OBSERVED. IV SITE ON LEFT HAND INTACT AND PATENT. NO S/S OF INFILTRATION NOTED. CALL LIGHT WITHIN REACH, WILL ENDORSE TO NEXT SHIFT FOR ABA.
--- NOTE | 2016-12-29 07:30 | NUR ---
MS/RN Patient received Patient received from automotive technician. Calm and cooperative, no behavior concerns. Remains with bilateral soft wrist restraints and sitter for safety. Will continue to closely monitor and ensure safety.
[2016-12-29 08:00] VITALS: BP 113/68
[2016-12-29] MEDS: DIVALPROEX SODIUM 500 MG TABLET.DR PO SCH ×2 (08:24→21:49)
[2016-12-29] MEDS: LORAZEPAM 1 MG TABLET PO PRN (08:24)
[2016-12-29] MEDS: DOCUSATE SODIUM 100 MG CAPSULE PO SCH ×2 (08:24→16:32)
[2016-12-29] MEDS: ESCITALOPRAM OXALATE (10 MG) 10 MG TABLET PO SCH (08:24)
[2016-12-29] MEDS: risperiDONE 0.25 MG TABLET PO SCH ×2 (08:24→16:32)
[2016-12-29] MEDS: OLANZAPINE 5 MG TABLET PO SCH ×3 (08:24→16:32)
--- NOTE | 2016-12-29 08:52 | NUR ---
MS/RN Medications Morning medications administered, no apparent problem swallowing medications.
--- NOTE | 2016-12-29 11:18 | NUR ---
MS/RN Speech therapy evaluation Seen by speech therapy - recommendations given to change diet to chopped.
--- NOTE | 2016-12-29 12:49 | NUR ---
MS/RN S/B Soha Burton SOAKING ROOM OPERATOR Seen by SOAKING ROOM OPERATOR - awaiting placement.
[2016-12-29 16:00] VITALS: BP 121/82
--- NOTE | 2016-12-29 18:31 | NUR ---
MS/RN End note No changes at this time, continues to await placement. Sitter remains at bedside for safety, soft wrist restraint to left wrist only. Has only required one prn medication today, easy to redirect. Will endorse to freelance web designer.
--- NOTE | 2016-12-29 19:28 | NUR ---
MS RN NOTES PATIENT IN BED WITH ON AND OFF EPISODES OF AGITATION, BILATERAL SOFT RESTRAINTS IN PLACE. PT VERBALLY RESPONSIVE, LUXEMBOURGISH SPEAKING. BREATHING EVEN AND UNLABORED, NO SOB OR DISTRESS NOTED. GOOD SKIN CARE RENDERED. ASPIRATION PRECAUTION OBSERVED. ALL NEEDS ATTENDED AND MET, SITTER AT BED SIDE. SAFETY PRECAUTIONS OBSERVED. IV SITE ON LEFT HAND INTACT AND PATENT. NO S/S OF INFILTRATION NOTED. CALL LIGHT WITHIN REACH, WILL CONTINUE TO MONITOR.
[2016-12-29 20:00] VITALS: BP 139/83
[2016-12-29] MEDS: TRAZODONE 50 MG TABLET PO SCH (21:49)
[2016-12-29 22:00] VITALS: BP 139/83
[2016-12-30] MEDS: PANTOPRAZOLE 40 MG TABLET.DR PO SCH (06:39)
--- NOTE | 2016-12-30 06:56 | NUR ---
MS RN NOTES PATIENT IN BED, RESTING COMFORTABLY AT THIS TIME. WITH ON AND OFF EPISODES OF AGITATION, BILATERAL SOFT RESTRAINTS IN PLACE. PT VERBALLY RESPONSIVE, TAJIK SPEAKING. BREATHING EVEN AND UNLABORED, NO SOB OR DISTRESS NOTED. GOOD SKIN CARE RENDERED. ASPIRATION PRECAUTION OBSERVED. ALL NEEDS ATTENDED AND MET, SITTER AT BED SIDE. SAFETY PRECAUTIONS OBSERVED. IV SITE ON LEFT HAND INTACT AND PATENT. NO S/S OF INFILTRATION NOTED. CALL LIGHT WITHIN REACH, WILL ENDORSE TO NEXT SHIFT FOR ABA.
--- NOTE | 2016-12-30 07:30 | NUR ---
AM RN NOTE Received patient awake lying in his bed. 1:1 sitter @ side. No acute distress noted. Bed in low locked position. Will continue to monitor.
[2016-12-30 08:00] VITALS: BP 117/67
[2016-12-30] MEDS: DOCUSATE SODIUM 100 MG CAPSULE PO SCH ×2 (08:26→16:21)
[2016-12-30] MEDS: OLANZAPINE 5 MG TABLET PO SCH ×3 (08:26→16:21)
[2016-12-30] MEDS: DIVALPROEX SODIUM 500 MG TABLET.DR PO SCH ×2 (08:26→21:07)
[2016-12-30] MEDS: risperiDONE 0.25 MG TABLET PO SCH ×2 (08:26→16:21)
[2016-12-30] MEDS: ESCITALOPRAM OXALATE (10 MG) 10 MG TABLET PO SCH (08:26)
[2016-12-30 12:50] LABS: BASOPHILS % (AUTO) 0.5 % (0.0-2.0); CALCIUM, SERUM 8.7 mg/dL (8.5-10.1); CREATININE 0.7 mg/dL (0.6-1.3); EOSINOPHILS # (AUTO) 0.2 /CMM (0.0-0.7); EOSINOPHILS % (AUTO) 3.3 % (0.0-6.0); HEMATOCRIT 41 % (39-51); LYMPHOCYTES # (AUTO) 1.8 /CMM (0.8-4.8); LYMPHOCYTES % (AUTO) 26.6 % (20.0-44.0); MEAN CORPUSCULAR HEMOGLOBIN 31 PG (26.0-33.0); MEAN CORPUSCULAR HGB CONC 34 g/dl (31.0-36.0); MEAN CORPUSCULAR VOLUME 92 fL (80-96); MONOCYTES # (AUTO) 0.6 /CMM (0.1-1.30); MONOCYTES % (AUTO) 8.2 % (2.0-12.0); NEUTROPHILS # (AUTO) 4.2 /CMM (1.8-8.9); NEUTROPHILS % (AUTO) 61.4 % (43.0-81.0); PLATELET COUNT (AUTO) 168 /CMM (150-450); POTASSIUM 3.8 mmol/L (3.5-5.1); RDW COEFFICIENT OF VARIATION 14.1 (11.5-15.0); RED BLOOD CELL COUNT(AUTO) 4.51 MIL/uL (4.5-6.0); WHITE BLOOD COUNT (AUTO) 6.9 K/uL (4.3-11.0)
[2016-12-30 16:00] VITALS: BP 110/67
--- NOTE | 2016-12-30 18:54 | NUR ---
AM RN NOTE Patient resting in his bed, 1:1 sitter @ side. Will endorse care to next shift.
--- NOTE | 2016-12-30 19:25 | NUR ---
MS RN NOTES RECEIVED PT IN BED, AWAKE, A/O X 1. DIVEHI SPEAKING. WITH ON AND OFF EPISODE OF AGITATION. NO DISTRESS, NO SOB NOTED. RESPIRATION IS EVEN AND UNLABORED. IV SITE ON LEFTY HAND INFILTRATED REMOVED. PRESSURE APPLIED. NO BLEEDING T THIS TIME. INSERTED IV ON LEFT HAND G22 , X1 ATTEMPT WITH GOOD VENOUS RETURN. IVF INFUSING WELL AT THIS TIME. SITTER AT BED SIDE. ALL NEEDS ATTENDED AND MET. KEPT COMFORTABLE. CALL LIGHT WITHIN REACH. WILL CONTINUE TO MONITOR.
[2016-12-30] MEDS ORDERED: IV SET PRIMARY PUMP SET 1 EA INFUS.SET MC ONE (19:53)
[2016-12-30 20:00] VITALS: BP_SYST 113; BP_SYST 88; BP_DIAS 54; BP_DIAS 66
[2016-12-30] MEDS: IV D5/0.45 NACL 1,000 ML IV PRN (20:03)
[2016-12-30] MEDS: TRAZODONE 50 MG TABLET PO SCH (21:06)
[2016-12-30 22:00] VITALS: BP 113/66
--- NOTE | 2016-12-31 05:29 | NUR ---
IV ON LEFT HAND LEAKING, REMOVED. PRESSURE APPLIED. INSERTED IV ON RIGHT HAND G # 22 X 1 ATTEMPT, WITH GOOD VENOUS RETURN. PT SANDY WELL. IVF INFUSING WELL AT THIS TIME. WILL CONT TO MONITOR.
[2016-12-31] MEDS: PANTOPRAZOLE 40 MG TABLET.DR PO SCH (06:36)
--- NOTE | 2016-12-31 06:59 | NUR ---
MS RN NOTES PT IN BED, AWAKE, A/O X 1. MAORI SPEAKING. WITH ON AND OFF EPISODE OF AGITATION. NO DISTRESS, NO SOB NOTED. RESPIRATION IS EVEN AND UNLABORED. IV SITE ON RIGHT HAND INTACT AND PATENT, IVF INFUSING WELL AT THIS TIME. SITTER AT BED SIDE. ALL NEEDS ATTENDED AND MET. KEPT COMFORTABLE. CALL LIGHT WITHIN REACH. WILL ENDORSE TO NEXT SHIFT FOR CONTINUITY OF CARE .
--- NOTE | 2016-12-31 07:15 | NUR ---
RN MS NOTES PATIENT ALERT AND ORIENTED WITH SITTER AT BEDSIDE, BILATERAL SOFT WRIST RESTRAINT ARE OFF AT THIS TIME, APPEARS TO BE CALM, NO S/SX OF ANY DISTRESS OR PAIN AT THIS TIME, BREATHING EVEN AND UNLABORED, NO SOB, ALL NEEDS ATTENDED, SAFETY MEASURES IN PLACED, WILL CONTINUE TO MONITOR.
[2016-12-31 08:00] VITALS: BP 115/66
[2016-12-31] MEDS: OLANZAPINE 5 MG TABLET PO SCH ×3 (08:17→17:04)
[2016-12-31] MEDS: DIVALPROEX SODIUM 500 MG TABLET.DR PO SCH ×2 (08:17→21:17)
[2016-12-31] MEDS: ESCITALOPRAM OXALATE (10 MG) 10 MG TABLET PO SCH (08:17)
[2016-12-31] MEDS: DOCUSATE SODIUM 100 MG CAPSULE PO SCH ×2 (08:17→17:04)
[2016-12-31] MEDS: risperiDONE 0.25 MG TABLET PO SCH ×2 (08:18→17:05)
[2016-12-31 17:00] VITALS: BP 137/74
[2016-12-31] MEDS: LORAZEPAM 1 MG TABLET PO PRN (17:25)
--- NOTE | 2016-12-31 17:33 | NUR ---
RN MS NOTES PATIENT APPEARS AGITATED, KEPT TRYING TO STAND UP AND WALK AROUND IN THE ROOM, APPEARS TO BE CHEWING, BUT VISUAL INSPECTION SHOWED NO FOOD OR ANY OBJECT IN THE MOUTH, ALL DUE MEDS GIVEN ORDERED, ATIVAN GIVEN FOR ANXIETY, SITTER AT BEDSIDE, WILL CONTINUE TO MONITOR.
--- NOTE | 2016-12-31 18:25 | NUR ---
RN MS NOTES PATIENT WITH SITTER, A STAND BY ASSIST WHILE PATIENT WALKS IN THE ROOM, REDIRECTED PATIENT TO BED FOR SAFETY, ALL NEEDS ATTENDED AND MET, SAFETY MEASURES IN PLACED, TOLERATED DINNER WITH ASSISTANCE FROM SITTER, NO SIGNIFICANT CHANGE DURING THIS SHIFT, IN STABLE CONDITION, WILL ENDORSE TO TAXICAB DRIVER FOR ABA.
--- NOTE | 2016-12-31 19:15 | NUR ---
RN NOTES RECEIVED PT AWAKE, NO SOB, NOT IN DISTRESS, ON ROOM AIR AND TOLERATED WELL. PT ALERT AND ORIENTED X1, OCCITAN SPEAKING. PT NOTED CONSTANTLY MOVING IN BED, WITH BILATERAL SOFT WRIST RESTRAINT ON, WITH GOOD CIRCULATION. IV ACCESS ON RIGHT HAND INTACT. SAFETY MEASURES IN PLACED. SITTER AT BEDSIDE. KEPT COMFORTABLE AND ATTENDED. WILL CONTINUE TO MONITOR PT.
[2016-12-31 20:00] VITALS: BP 107/71
[2016-12-31] MEDS: TRAZODONE 50 MG TABLET PO SCH (21:17)
[2016-12-31] MEDS: IV D5/0.45 NACL 1,000 ML IV PRN (21:53)
[2016-12-31 22:00] VITALS: BP 107/71
--- NOTE | 2017-01-01 06:49 | NUR ---
RN NOTES PT ASLEEP , HOB ELEVATED, BREATHING REGULAR AND UNLABORED, NO SIGNS OF DISTRESS AND DISCOMFORT NOTED. VITAL SIGNS STABLE.NO COMPLAIN OF PAIN WITHIN THE SHIFT. BILATERAL SOFT WRIST RESTRAINT ON, WITH GOOD CIRCULATION. PT IS CALM AND QUIET WITHIN THE SHIFT, SLEPT MOST OF THE TIME. NO SIGNIFICANT CHANGE IN CONDITION NOTED. WILL ENDORSE TO MORNING RN FOR CONTINUITY OF CARE.
--- NOTE | 2017-01-01 07:30 | NUR ---
MS RN NOTES RECEIVED PT AWAKE, AOX1, NEPALI SPEAKING. BREATHING EVEN AND NON LABORED, NOT IN DISTRESS, ON ROOM AIR O2 SAT 97%. PT NOTED TO BE CONSTANTLY MOVING IN BED, WITH BILATERAL SOFT WRIST RESTRAINT IN PLACED, WITH GOOD CIRCULATION NOTED, NO SKIN BREAKDOWN NOTED. WITH IVF'S ON PROGRESS ON HIS RIGHT HAND. SAFETY MEASURES IN PLACED. SITTER AT BEDSIDE. KEPT COMFORTABLE, CLEAN AND DRY. WILL CONTINUE TO MONITOR.
[2017-01-01 08:00] VITALS: BP_SYST 122; BP_SYST 126; BP_DIAS 79; BP_DIAS 80
[2017-01-01] MEDS: PANTOPRAZOLE 40 MG TABLET.DR PO SCH (08:41)
[2017-01-01] MEDS: ESCITALOPRAM OXALATE (10 MG) 10 MG TABLET PO SCH (08:41)
[2017-01-01] MEDS: DIVALPROEX SODIUM 500 MG TABLET.DR PO SCH ×2 (08:41→21:09)
[2017-01-01] MEDS: OLANZAPINE 5 MG TABLET PO SCH ×3 (08:41→16:30)
[2017-01-01] MEDS: DOCUSATE SODIUM 100 MG CAPSULE PO SCH ×2 (08:41→16:30)
[2017-01-01] MEDS: risperiDONE 0.25 MG TABLET PO SCH ×2 (09:49→16:31)
--- NOTE | 2017-01-01 11:00 | NUR ---
MS RN NOTES SEEN AND EXAMINED BY ANTHONY LOYD WITH NEW ORDERS MADE AND CARRIED OUT.
[2017-01-01] MEDS: IV D5/0.45 NACL 1,000 ML IV PRN (11:49)
[2017-01-01 12:07] LABS: BASOPHILS % (AUTO) 0.5 % (0.0-2.0); EOSINOPHILS # (AUTO) 0.2 /CMM (0.0-0.7); EOSINOPHILS % (AUTO) 5.2 % (0.0-6.0); HEMATOCRIT 43 % (39-51); HEMOGLOBIN 13.9 g/dL (13.5-17.5); LYMPHOCYTES # (AUTO) 1.3 /CMM (0.8-4.8); LYMPHOCYTES % (AUTO) 29.1 % (20.0-44.0); MEAN CORPUSCULAR HEMOGLOBIN 30 PG (26.0-33.0); MEAN CORPUSCULAR HGB CONC 33 g/dl (31.0-36.0); MEAN CORPUSCULAR VOLUME 91 fL (80-96); MONOCYTES # (AUTO) 0.4 /CMM (0.1-1.30); MONOCYTES % (AUTO) 9.2 % (2.0-12.0); NEUTROPHILS # (AUTO) 2.7 /CMM (1.8-8.9); PLATELET COUNT (AUTO) 156 /CMM (150-450); RDW COEFFICIENT OF VARIATION 12.8 (11.5-15.0); RED BLOOD CELL COUNT(AUTO) 4.66 MIL/uL (4.5-6.0); WHITE BLOOD COUNT (AUTO) 4.6 K/uL (4.3-11.0)
[2017-01-01 12:09] LABS: CALCIUM, SERUM 8.9 mg/dL (8.5-10.1); CREATININE 0.8 mg/dL (0.6-1.3); POTASSIUM 3.7 mmol/L (3.5-5.1)
[2017-01-01 16:00] VITALS: BP 109/73
[2017-01-01] MEDS: LORAZEPAM 1 MG TABLET PO PRN (16:42)
--- NOTE | 2017-01-01 16:44 | NUR ---
MS RN NOTES PT NOTED TO BE AGITATED, PULLING OUT HIS PIV, YELLING AND TRYING TO KICK THE SITTER. ATIVAN 2 MG PO PRN GIVEN ORDERED. WILL CONTINUE TO MONITOR.
--- NOTE | 2017-01-01 18:15 | NUR ---
MS RN NOTES ALL NEEDS ATTENDED AND ANTICIPATED. ENDORSED TO INCOMING SHIFT FOR CONTINUITY OF CARE.
[2017-01-01] MEDS: OLANZAPINE 5 MG/TAB.RAPDIS PO PRN (18:28)
--- NOTE | 2017-01-01 19:15 | NUR ---
RN NOTES RECEIVED PT AWAKE, NO SOB, NOT IN DISTRESS, ON ROOM AIR AND TOLERATED WELL. PT ALERT AND ORIENTED X1, ESTONIAN SPEAKING ONLY. PT NOTED CONSTANTLY MOVING IN BED, WITH BILATERAL SOFT WRIST RESTRAINT ON, WITH GOOD CIRCULATION, NO SKIN REDNESS AND BREAKDOWN. IV ACCESS ON RIGHT HAND INTACT. SAFETY MEASURES IN PLACED. SITTER AT BEDSIDE. KEPT COMFORTABLE AND ATTENDED. WILL CONTINUE TO MONITOR PT.
[2017-01-01 20:00] VITALS: BP 121/80
[2017-01-01] MEDS: TRAZODONE 50 MG TABLET PO SCH (21:09)
[2017-01-01 22:00] VITALS: BP 121/80
[2017-01-02] MEDS: IV D5/0.45 NACL 1,000 ML IV PRN (05:10)
--- NOTE | 2017-01-02 06:29 | NUR ---
RN NOTES PT ASLEEP, HOB ELEVATED, NO SOB, NOT IN DISTRESS, ON ROOM AIR AND TOLERATED WELL. VITAL SIGNS STABLE, NO COMPLAIN OF PAIN, NO EPISODE OF NAUSEA AND VOMITING. PT STILL NOTED CONSTANTLY MOVING IN BED, WITH TIMES OF TRYING TO PULL OUT IV TUBINGS. WITH EPISODES OF BEING COMBATIVE WHEN GIVING CARE. ALL DUE MEDS GIVEN AND TOLERATED WELL. SAFETY MEASURES IN PLACE WITH SITTER AT BED SIDE. WILL ENDORSE TO MORNING RN FOR CONTINUITY OF CARE.
--- NOTE | 2017-01-02 07:23 | NUR ---
MS/RN Patient received Patient received from night. Sitter at bedside for safety. No apparent needs at this time, will continue to monitor.
[2017-01-02] MEDS: LORAZEPAM 1 MG TABLET PO PRN (07:59)
[2017-01-02] MEDS: ESCITALOPRAM OXALATE (10 MG) 10 MG TABLET PO SCH (07:59)
[2017-01-02] MEDS: DIVALPROEX SODIUM 500 MG TABLET.DR PO SCH ×3 (07:59→21:03)
[2017-01-02] MEDS: OLANZAPINE 5 MG TABLET PO SCH ×3 (07:59→17:29)
[2017-01-02] MEDS: PANTOPRAZOLE 40 MG TABLET.DR PO SCH (07:59)
[2017-01-02] MEDS: DOCUSATE SODIUM 100 MG CAPSULE PO SCH ×2 (07:59→17:29)
[2017-01-02] MEDS: risperiDONE 0.25 MG TABLET PO SCH ×2 (08:00→17:29)
--- NOTE | 2017-01-02 09:00 | NUR ---
MS/RN Medications Compliant with medications.
--- NOTE | 2017-01-02 11:45 | NUR ---
MS/RN S/B Soha Espinosa CREDIT VERIFIER Seen by Soha Espinosa CREDIT VERIFIER - continue to await placement.
--- NOTE | 2017-01-02 17:53 | NUR ---
MS/RN Behavior Patient remains calm and cooperative today, no behavior concerns, easily redirected.
--- NOTE | 2017-01-02 18:31 | NUR ---
MS/RN End note No changes at this time, will endorse to shift superintendent caustic cresylate.
[2017-01-02 19:18] VITALS: BP 127/86
--- NOTE | 2017-01-02 19:20 | NUR ---
MS RN NOTE RECEIVED PATIENT FROM DAY SHIFT, PATIENT IS CONFUSED, ARABIC SPEAKER, MUMBLES WITH NON SENSE WORDS. IV ON RIGHT HAND IS PATENT AND INTACT, COVERED WITH KERLIX, HL ONLY. STILL AWAITING FOR PLACEMENT. 1:1 SITTER PRESENT FOR BEHAVIOR OBSERVATION. SRX2, BED IN LOW POSITION, CALL LIGHT WITHIN REACH, WILL CONTINUE TO MONITOR PATIENT.
[2017-01-02 19:55] VITALS: BP 153/91
[2017-01-02] MEDS: TRAZODONE 50 MG TABLET PO SCH ×2 (21:03→22:00)
--- NOTE | 2017-01-02 22:05 | NUR ---
MS RN NOTE PATIENT WAS IN DEEP SLEEP, WAS NOT ABLE TO ADMINISTER NIGHT MEDS; DEPAKOTE 500MG PO AND DESYREL 50MG PO. WASTED IN PYXIS. PATIENT IS BREATHING NORMALLY, NO ACUTE DISTRESS PRESENT.
--- NOTE | 2017-01-03 06:46 | NUR ---
MS RN NOTE PATIENT IS RESTING IN BED WITH 1:1 SITTER, NO ACUTE DISTRESS PRESENT DURING THE ASSOCIATE MERCHANDISER SHOWING USUAL BEHAVIORS. IV ON RIGHT HAND IS PATENT AND INTACT, HL ONLY.WILL ENDORSE TO DAY SHIFT FOR ABA.
--- NOTE | 2017-01-03 07:16 | NUR ---
MS RN OPENING NOTE PATIENT IS ALERT AND ORIENTED x1. MACEDONIAN SPEAKING. NO PAIN AT THIS TIME. NO SOB OR DISTRESS NOTED. CALL LIGHT WITHIN REACH, SAFETY MEASURES IMPLEMENTED. IV INTACT AND PATENT NO REDNESS OR SWELLING NOTED. SITTER AT BEDSIDE. AWAITING SNF PLACEMENT. WILL CONTINUE TO MONITOR
[2017-01-03 08:00] VITALS: BP 113/74
[2017-01-03] MEDS: OLANZAPINE 5 MG TABLET PO SCH ×3 (08:31→16:10)
[2017-01-03] MEDS: PANTOPRAZOLE 40 MG TABLET.DR PO SCH (08:32)
[2017-01-03] MEDS: risperiDONE 0.25 MG TABLET PO SCH ×2 (08:32→16:10)
[2017-01-03] MEDS: DOCUSATE SODIUM 100 MG CAPSULE PO SCH ×2 (08:32→16:10)
[2017-01-03] MEDS: DIVALPROEX SODIUM 500 MG TABLET.DR PO SCH ×2 (08:32→21:06)
[2017-01-03] MEDS: ESCITALOPRAM OXALATE (10 MG) 10 MG TABLET PO SCH (08:32)
[2017-01-03 16:00] VITALS: BP 105/68
[2017-01-03] MEDS: LORAZEPAM 1 MG TABLET PO PRN (18:15)
--- NOTE | 2017-01-03 18:41 | NUR ---
MS RN CLOSING NOTE PATIENT IS ALERT AND ORIENTED x1. NO PAIN AT THIS TIME. NO SOB OR DISTRESS NOTED. CALL LIGHT WITHIN REACH AT ALL TIMES. NO SOB OR DISTRESS NOTED. SAFETY MEASURES IMPLEMENTED. IV INTACT AND PATENT NO REDNESS OR SWELLING NOTED. MUMBLES IN [place]. SITTER AT BEDSIDE, WILL ENDORSE TO DRY END TESTER NURSE
--- NOTE | 2017-01-03 19:15 | NUR ---
MS RN NOTES RECEIVED ON BED,TALKING TO SELF UNCLEARED,RESTRAINTS OFF AT THIS TIME,SITTER AT BEDSIDE FOR SAFETY.WILL CONTINUE TO MONITOR BEHAVIOR
[2017-01-03 20:00] VITALS: BP 112/61
[2017-01-03] MEDS: TRAZODONE 50 MG TABLET PO SCH (21:06)
[2017-01-03 21:40] VITALS: BP 112/62
--- NOTE | 2017-01-03 22:00 | NUR ---
MS RN NOTES TOOK PO MEDS WELL.
--- NOTE | 2017-01-04 01:00 | NUR ---
MS RN NOTES SOUND ASLEEP,SITTER AT BEDSIDE FOR SAFETY
--- NOTE | 2017-01-04 06:34 | NUR ---
MS RN NOTES SLEPT 8-9 HOURS,CALM. FOLLOW DIRECTIONS,WITH EPISODE OF AGITATIONS AT TIMES.WILL CONTINUE WITH PLAN OF CARE,AWAITING FOR PLACEMENT.WILL ENDORSE TO DAY NURSE FOR ABA.
[2017-01-04 06:37] LABS: BASOPHILS % (AUTO) 0.4 % (0.0-2.0); EOSINOPHILS # (AUTO) 0.3 /CMM (0.0-0.7); EOSINOPHILS % (AUTO) 5.4 % (0.0-6.0); HEMATOCRIT 43 % (39-51); HEMOGLOBIN 14.9 g/dL (13.5-17.5); LYMPHOCYTES # (AUTO) 1.5 /CMM (0.8-4.8); LYMPHOCYTES % (AUTO) 31.1 % (20.0-44.0); MEAN CORPUSCULAR HEMOGLOBIN 31 PG (26.0-33.0); MEAN CORPUSCULAR HGB CONC 34 g/dl (31.0-36.0); MEAN CORPUSCULAR VOLUME 92 fL (80-96); MONOCYTES # (AUTO) 0.4 /CMM (0.1-1.30); MONOCYTES % (AUTO) 8.4 % (2.0-12.0); NEUTROPHILS # (AUTO) 2.6 /CMM (1.8-8.9); NEUTROPHILS % (AUTO) 54.7 % (43.0-81.0); PLATELET COUNT (AUTO) 159 /CMM (150-450); RDW COEFFICIENT OF VARIATION 13.7 (11.5-15.0); RED BLOOD CELL COUNT(AUTO) 4.75 MIL/uL (4.5-6.0); WHITE BLOOD COUNT (AUTO) 4.7 K/uL (4.3-11.0)
[2017-01-04 06:59] LABS: CALCIUM, SERUM 8.8 mg/dL (8.5-10.1); CREATININE 0.9 mg/dL (0.6-1.3); MAGNESIUM 1.9 mg/dL (1.8-2.4); POTASSIUM 3.9 mmol/L (3.5-5.1)
--- NOTE | 2017-01-04 07:30 | NUR ---
MS/RN Patient received Patient received from restaurant shift supervisor. Calm and cooperative, no behavior concerns. Sitter at bedside for safety. Will continue to monitor to ensure safety.
[2017-01-04] MEDS: PANTOPRAZOLE 40 MG TABLET.DR PO SCH (07:50)
[2017-01-04] MEDS: LORAZEPAM 1 MG TABLET PO PRN ×2 (07:50→15:22)
[2017-01-04] MEDS: OLANZAPINE 5 MG TABLET PO SCH ×3 (07:50→16:51)
[2017-01-04] MEDS: DOCUSATE SODIUM 100 MG CAPSULE PO SCH ×2 (07:50→16:50)
[2017-01-04] MEDS: risperiDONE 0.25 MG TABLET PO SCH ×2 (07:50→16:51)
[2017-01-04] MEDS: ESCITALOPRAM OXALATE (10 MG) 10 MG TABLET PO SCH (07:50)
[2017-01-04] MEDS: DIVALPROEX SODIUM 500 MG TABLET.DR PO SCH ×2 (07:50→20:55)
[2017-01-04 08:00] VITALS: BP 106/70
--- NOTE | 2017-01-04 08:24 | NUR ---
MS/RN Medications Morning medications administered as ordered.
--- NOTE | 2017-01-04 11:54 | NUR ---
MS/RN Behavior Patient remains calm and cooperative this morning, no concerns.
[2017-01-04] MEDS: OLANZAPINE 5 MG/TAB.RAPDIS PO PRN (15:22)
[2017-01-04 16:00] VITALS: BP 110/67
--- NOTE | 2017-01-04 18:11 | NUR ---
MS/RN End note No changes at this time, continue to await placement. Will endorse to chemical tank worker.
--- NOTE | 2017-01-04 19:15 | NUR ---
MS RN NOTES AWAKE,SITTING ON EDGE OF BED,AMBULATES AT TIME WITH UNSTEADY GAIT.MONITOR FOR FALLS,SITTER AT BEDSIDE.SALINE LOCK RIGHT HAND INTACT AND PATENT.WILL CONTINUE TO MONITOR BEHAVIOR.
[2017-01-04 20:00] VITALS: BP 103/76
[2017-01-04] MEDS: TRAZODONE 50 MG TABLET PO SCH (20:55)
--- NOTE | 2017-01-05 06:04 | NUR ---
MS RN NOTES NO SIGNIFICANT CHANGE IN STATUS,SLEPT WELL,NO FALL,NO INJURY,SITTER AT BEDSIDE.D/C PLAN AWAITS PLACEMENT.
--- NOTE | 2017-01-05 07:24 | NUR ---
MS/RN Patient received Patient received from housekeeping cleaner. No needs at this time, sitter at bedside for safety. Will continue to monitor and ensure safety.
[2017-01-05] MEDS: DOCUSATE SODIUM 100 MG CAPSULE PO SCH ×2 (08:20→17:05)
[2017-01-05] MEDS: LORAZEPAM 1 MG TABLET PO PRN (08:21)
[2017-01-05] MEDS: risperiDONE 0.25 MG TABLET PO SCH ×2 (08:21→17:04)
[2017-01-05] MEDS: ESCITALOPRAM OXALATE (10 MG) 10 MG TABLET PO SCH (08:21)
[2017-01-05] MEDS: OLANZAPINE 5 MG TABLET PO SCH ×3 (08:21→17:04)
[2017-01-05] MEDS: DIVALPROEX SODIUM 500 MG TABLET.DR PO SCH ×2 (08:21→21:02)
[2017-01-05] MEDS: PANTOPRAZOLE 40 MG TABLET.DR PO SCH (08:37)
--- NOTE | 2017-01-05 09:00 | NUR ---
MS/RN Medications Compliant with medications.
--- NOTE | 2017-01-05 13:18 | NUR ---
MS/RN Rounds Patient calm and cooperative at this time, no behavior concerns.
[2017-01-05 16:00] VITALS: BP 120/63
--- NOTE | 2017-01-05 18:10 | NUR ---
MS/RN End note No changes at this time. Per porter sample case still waiting for placement. Complaint with plan of care, no needs, sitter remains at bedside for safety.
--- NOTE | 2017-01-05 19:30 | NUR ---
MS RN NOTES ON BED ,A/O X1-2,EASILY GETS AGITATED,FOLLOWS COMMAND AT TIMES.FALL RISK,SITTER AT BEDSIDE.WILL CONTINUE TO MONITOR BEHAVIOR.
[2017-01-05 20:12] VITALS: BP 101/60
[2017-01-05] MEDS: TRAZODONE 50 MG TABLET PO SCH (21:02)
--- NOTE | 2017-01-05 21:30 | NUR ---
MS RN NOTES DUE PO MEDS TAKEN WELL,NEGATIVE FOR ASPIRATION
--- NOTE | 2017-01-05 23:55 | NUR ---
MS RN NOTES SOUND ASLEEP.SITTER AT BEDSIDE FOR SAFETY
--- NOTE | 2017-01-06 06:12 | NUR ---
MS RN NOTES FAIRLY RESTED,SLEPT WELL,NO FALLS,NO INJURY.FOLLOW INSTRUCTION.D/C PLAN,AWAIT PLACEMENT
[2017-01-06 06:39] LABS: BASOPHILS % (AUTO) 0.1 % (0.0-2.0); EOSINOPHILS # (AUTO) 0.2 /CMM (0.0-0.7); EOSINOPHILS % (AUTO) 2.6 % (0.0-6.0); HEMATOCRIT 43 % (39-51); HEMOGLOBIN 14.4 g/dL (13.5-17.5); LYMPHOCYTES # (AUTO) 1.3 /CMM (0.8-4.8); LYMPHOCYTES % (AUTO) 18.4 % (20.0-44.0); MEAN CORPUSCULAR HEMOGLOBIN 31 PG (26.0-33.0); MEAN CORPUSCULAR HGB CONC 34 g/dl (31.0-36.0); MEAN CORPUSCULAR VOLUME 93 fL (80-96); MONOCYTES # (AUTO) 0.3 /CMM (0.1-1.30); MONOCYTES % (AUTO) 4.8 % (2.0-12.0); NEUTROPHILS # (AUTO) 5.2 /CMM (1.8-8.9); NEUTROPHILS % (AUTO) 74.1 % (43.0-81.0); PLATELET COUNT (AUTO) 164 /CMM (150-450); RDW COEFFICIENT OF VARIATION 13.9 (11.5-15.0); RED BLOOD CELL COUNT(AUTO) 4.59 MIL/uL (4.5-6.0)
[2017-01-06 06:54] LABS: CALCIUM, SERUM 8.5 mg/dL (8.5-10.1); CREATININE 0.9 mg/dL (0.6-1.3); MAGNESIUM 1.7 mg/dL (1.8-2.4); POTASSIUM 3.8 mmol/L (3.5-5.1)
--- NOTE | 2017-01-06 08:00 | NUR ---
MS RN NOTES PATIENT IN BED RESTING WITH SITTER AT BEDSIDE. NO SOB OR ACUTE DISTRESS. COOPERATIVE. BED IN LOW LOCKED POSITION. CALL LIGHT WITHIN REACH. WILL CONTINUE TO MONITOR.
[2017-01-06 08:02] VITALS: BP 100/62
[2017-01-06] MEDS: DOCUSATE SODIUM 100 MG CAPSULE PO SCH ×2 (08:11→17:06)
[2017-01-06] MEDS: ESCITALOPRAM OXALATE (10 MG) 10 MG TABLET PO SCH (08:11)
[2017-01-06] MEDS: DIVALPROEX SODIUM 500 MG TABLET.DR PO SCH (08:11)
[2017-01-06] MEDS: PANTOPRAZOLE 40 MG TABLET.DR PO SCH (08:12)
[2017-01-06] MEDS: risperiDONE 0.25 MG TABLET PO SCH ×2 (08:12→17:06)
[2017-01-06] MEDS: OLANZAPINE 5 MG TABLET PO SCH ×3 (08:12→17:06)
[2017-01-06] MEDS ORDERED: OLAN5TAB6 PO (11:48)
[2017-01-06] MEDS ORDERED: TRAZ-144 PO (11:48)
[2017-01-06] MEDS ORDERED: OLAN5TAB3 PO (11:48)
[2017-01-06] MEDS ORDERED: DIVA500T2 PO (11:48)
--- NOTE | 2017-01-06 12:00 | NUR ---
MS RN NOTES PATIENT SEEN AND EVALUATED BY DR. MAGAÑA ORDERS NOTED AND CARRIED OUT.
[2017-01-06] MEDS ORDERED: Magnesium 1GM/D5W 100ML PREMIX 100 ML IV SCH (13:00)
[2017-01-06] MEDS ORDERED: MAGNESIUM OXIDE 400 MG TABLET PO ONE (13:00)
[2017-01-06 15:54] VITALS: BP 93/63
--- NOTE | 2017-01-06 19:06 | NUR ---
MS RN NOTES PATIENT DISCHARGED VIA AMBULANCE TO [facility]. IN STABLE CONDITION. MD AWARE OF ALL ABNORMAL LABS. ALL DUE MEDICATIONS ADMINISTERED. PATIENT WITH NO BELONGINGS. [employer] WIRELESS SALES REPRESENTATIVE SPOKE TO SONIA FROM YOUR CHOICE [facility] WITH REPORT AND INFORMATION FAXED. ID BAND REMOVED REMOVED. TRANSFERRED VIA AMBULANCE.
== END 2017-01-06 19:15 | disposition home or self-care (01) | DRG 52 ==
LOC: ER 15:49 → MERGE 15:49 → MEDSG2 18:09
PROVIDERS: ADMIT Internal Medicine; ATTEND Internal Medicine
DX: G93.41 Metabolic encephalopathy (principal); G30.9 Alzheimer's disease, unspecified; F02.80 Dementia in other diseases classified elsewhere, unspecified severity, without behavioral disturbance, psychotic disturbance, mood disturbance, and anxiety; F32.9 Major depressive disorder, single episode, unspecified; F20.9 Schizophrenia, unspecified; Z91.81 History of falling; Z73.6 Limitation of activities due to disability
CPT/HCPCS: 36415; 71010-TC; 80048-TC; 80053-TC; 80061-TC; 81000-TC; 83735-TC; 84100-TC; 85025-TC; 87081-TC; 87086-TC; 92521; 97001-TC; A4606; G0480; J1200; J1630; J2060; J3475; J3490; Q0163; Z7610

== ENCOUNTER 2017-01-12 21:38 | Emergency (ER) | payer MEDICAID ==
[~2017-01-12] VITALS: Ht 154.9 cm; Wt 63.5 kg
[~2017-01-12 21:38] MED LIST changes: +DIVA500T2 PO; +LORA2TAB PO; -MORP100S3 SL; +OLAN5TAB3 PO; +OLAN5TAB6 PO; -ONDA4TAB11 SL; -PROC25SU29 RC
[2017-01-12] MEDS ORDERED: OLANZAPINE 10 MG VIAL IM ONE ×2 (21:48→22:00)
[2017-01-12] MEDS ORDERED: LORAZEPAM INJ 2 MG/ML VIAL ONE (21:49)
[2017-01-12] MEDS ORDERED: WATER FOR INJECTION,STERILE 10 ML ONE (21:49)
--- NOTE | 2017-01-12 21:50 | NUR ---
PT SABRINA "FROM [facility] HERE FOR PSYCH EVAL" DANISH SPEAKING, RR EVEN AND UNLABORED. NO SOB NOTED. NAD NOTED. NO NVD AT THIS TIME. PT NOT DIAPHORETIC. PT GOWNED AND PLACED ON MONITOR WAITING FOR MD MIXON.
--- NOTE | 2017-01-12 21:52 | NUR ---
PT WITH CURRENT LABS FROM [facility]
[2017-01-12] MEDS ORDERED: LORAZEPAM INJ 2 MG/ML VIAL IM ONE (22:00)
--- NOTE | 2017-01-12 22:10 | NUR ---
ART PAGED FOR PSYCH EVAL.
--- NOTE | 2017-01-12 22:49 | NUR ---
REPatient is resting comfortably in bed with eyes closed. Easily aroused. VSS
--- NOTE | 2017-01-12 23:08 | NUR ---
ART AT BEDSIDE FOR EVAL.
--- NOTE | 2017-01-13 07:17 | NUR ---
REPORT GIVEN TO KAPIL HAY AND KAPIL JOSE FOR C.O.C
--- NOTE | 2017-01-13 09:09 | NUR ---
FOOD ORDERED FOR PATIENT, PATIENT IS IN BED, HAS ATTEMPTED TO AMBULATE WITHOUT ASSISTANCE, PATIENT REDIRECTED SUCCESSFULLY.
--- NOTE | 2017-01-13 12:35 | NUR ---
PATIENT PROVIDED WITH PERICARE, AND PATIENT IS NOW COMFORTABLE IN BED.
--- NOTE | 2017-01-13 14:44 | NUR ---
CONTACTED RETAIL ASSISTANT MANAGER FOR PLACEMENT UPDATES, STATES THEY ARE TOO BUSY TO ASSIST AT THIS TIME
--- NOTE | 2017-01-13 14:45 | NUR ---
CALLED [facility]OE HUMPHREYS, STATES SHE WILL ASSIST WITH FINDING PLACEMENT
--- NOTE | 2017-01-13 15:03 | NUR ---
CALLED [facility] FOR TRANSPORT, ETA OF 45 MINS WAS GIVEN.
--- NOTE | 2017-01-13 15:10 | NUR ---
BROOKE received a call from charge entry specialist Ron from ED informing SW that pt. was brought in via ambulance last night from his board and care and is ready for discharge, however the board and care route process administrator Raiza Meredith has not being answering their calls. SW tried to reach Raiza Meredith but was unable to leave a voicemail since her voicemail is full. BROOKE contacted [facility] [employer] and spoke to Officer Grant regarding pt's situation, officer Grant informed SW they would not be able to send out dispatch to the board and care since no arrests have to be made or police reports need to be made. BROOKE contacted charge entry specialist Ron in ED and updated him regarding SW's conversation with the police department.
--- NOTE | 2017-01-13 15:58 | NUR ---
BROOKE contacted [facility] for possible placement for pt. Jacqui informed SW she will be unable to accept pt. at this time. BROOKE updated CNO Warren and Apartment Maintenance Sheryl Israel regarding placement. BROOKE also updated RN Robert in ED.
[2017-01-13 16:42] VITALS: BP 120/81
--- NOTE | 2017-01-13 16:43 | NUR ---
patient discharged home with stable condition, patient discharge instructions given to transportation wrinkle chaser, and patient's acute care registered nurse was contacted by social insurance administrator scott, confirmed for discharge to home.
== END 2017-01-13 16:43 | disposition home or self-care (01) ==
LOC: ER 21:40
DX: F29 Unspecified psychosis not due to a substance or known physiological condition (principal); F02.80 Dementia in other diseases classified elsewhere, unspecified severity, without behavioral disturbance, psychotic disturbance, mood disturbance, and anxiety; G30.9 Alzheimer's disease, unspecified; F20.0 Paranoid schizophrenia
CPT/HCPCS: 96372 ×2; 99284; A4606; J2060; J3490; Z7610